=== PATIENT | male | born 1940 | race Caucasian/White ===

== ENCOUNTER 2022-01-29 10:03 | Inpatient (IN) | payer OTHER, MEDICAID ==
[~2022-01-29] VITALS: Ht 152.4 cm; Wt 65.3 kg
[2022-01-29] MEDS ORDERED: SODIUM CHLORIDE 0.9% 1,000 ML IV ONE (10:30)
[2022-01-29 10:51] LABS: BASOPHILS % 0.1 % (0.0-2.0); HEMATOCRIT. 42.7 % (42.0-52.0); HEMOGLOBIN. 14.7 g/dL (14.0-18.0); LYMPHOCYTES % 7.2 % (20.0-50.0); MEAN CORPUSCULAR VOLUME 89.7 fL (80.0-94.0); MEAN PLATELET VOLUME 9.6 fl (7.4-10.4); MONOCYTES % 13.7 % (2.0-8.0); PLATELET 187 x1000/uL (130-400); RED BLOOD CELL COUNT 4.76 mill/uL (4.7-6.1)
[2022-01-29 11:07] LABS: PHOSPHORUS 3.3 mg/dL (2.5-4.9)
[2022-01-29] MEDS ORDERED: VANCOMYCIN 1G PREMIX 200 ML IV NR (11:30)
[2022-01-29] MEDS ORDERED: PIPERACILLIN/TAZ 3.375G PREMIX 50 ML IV NR (11:30)
[2022-01-29] MEDS ORDERED: SODIUM CHLORIDE 0.9% 1000ML BAG (SEPSIS BOLUS) IV ONE (11:30)
[2022-01-29] MEDS ORDERED: SODIUM CHLORIDE 0.9% 2,190 ML IV SCH (11:45)
[2022-01-29] MEDS ORDERED: HYDRALAZINE 20MG/ML VIAL IV ONE (12:00)
[2022-01-29] MEDS ORDERED: DEXAMETHASONE 10 MG/ML VIAL IV ONE (12:15)
[2022-01-29 12:21] LABS: CHLORIDE 104 mEq/L (98-107)
[2022-01-29 14:00] VITALS: BP 150/60
[2022-01-29 14:14] LABS: CHLORIDE 107 mEq/L (98-107)
[2022-01-29 14:30] VITALS: BP 150/60
[2022-01-29] MEDS ORDERED: PIPERACILLIN/TAZOBACTAM 3.375GM/50ML PREMIX IV SCH (15:30)
[2022-01-29 16:28] LABS: CLARITY URINE CLEAR (CLEAR); COLOR URINE YELLOW (YELLOW); KETONES URINE 1+ (NEGATIVE); LEUKOCYTE ESTERASE URINE NEGATIVE (NEGATIVE); NITRITE URINE NEGATIVE (NEGATIVE); OCCULT BLOOD URINE 3+ (NEGATIVE); PROTEIN URINE 3+ (NEGATIVE); SPECIFIC GRAVITY URINE 1.031 (1.005-1.030); UROBILINOGEN URINE 0.2 E.U./dL (0.2-1.0)
[2022-01-29 16:30] VITALS: BP 150/70
[2022-01-29] MEDS: PANTOPRAZOLE SODIUM 40 MG/VIAL IV SCH (16:56)
[2022-01-29] MEDS: ENOXAPARIN 40MG/0.4ML SYR SUBCUT SCH (16:57)
[2022-01-29 17:53] LABS: BG CARBOXYHEMOGLOBIN 0.4 % (0.5-1.5); BG DEOXYHEMOGLOBIN 4.7 % (0.0-5.0); BG FRACTION INSPIRED OXYGEN 21; BG HCO3 ACT 19.7 mmol/L (22.0-26.0); BG METHEMOGLOBIN 0.2 % (0.0-1.5); BG OXYGEN SATURATION 95.3 % (92.0-98.5); BG OXYHEMOGLOBIN 94.7 % (94.0-97.0); BG PCO2 32.6 mmHg (35.0-45.0); BG PO2 77.1 mmHg (75.0-100.0); BG SAMPLE SITE RIGHT RADIAL; BG TOTAL HEMOGLOBIN 14.5 g/dL (12.0-18.0); BG VENT MODE ROOM AIR
[2022-01-29 20:00] VITALS: BP 198/69
[2022-01-29] MEDS ORDERED: DEXTROSE 50% WATER 50ML SYRINGE IV PRN (20:30)
[2022-01-29] MEDS: BLOOD SUGAR DIAGNOSTIC STRIP TEST SCH (21:00)
[2022-01-29] MEDS: CLONIDINE 0.1MG TABLET PO PRN (22:37)
[2022-01-29] MEDS: INSULIN LISPRO 100 UNITS/ML SUBCUT SCH (22:37)
[2022-01-30] VITALS: BP 136/79
[2022-01-30 00:10] LABS: CREATINE KINASE MB FRACTION 16.4 ng/mL (0.5-3.6)
[2022-01-30] MEDS ORDERED: INSULIN LISPRO 100 UNITS/ML SUBCUT SCH (00:15)
[2022-01-30] MEDS: PIPERACILLIN/TAZOBACTAM 3.375G in DEXT 5% WATER 50ML IV SCH ×4 (00:37→21:54)
[2022-01-30 04:00] VITALS: BP 145/75
[2022-01-30 06:50] LABS: BASOPHILS % 0.1 % (0.0-2.0); HEMATOCRIT. 40.1 % (42.0-52.0); HEMOGLOBIN. 13.4 g/dL (14.0-18.0); LYMPHOCYTES % 7.4 % (20.0-50.0); MEAN CORPUSCULAR HEMOGLOBIN 30.8 pg (28.0-32.0); MEAN CORPUSCULAR VOLUME 92.3 fL (80.0-94.0); MEAN PLATELET VOLUME 9.3 fl (7.4-10.4); MONOCYTES % 6.7 % (2.0-8.0); NEUTROPHILS % 85.8 % (40.0-76.0); PLATELET 188 x1000/uL (130-400); RED BLOOD CELL COUNT 4.35 mill/uL (4.7-6.1); RED CELL DISTRIBUTION WIDTH 12.9 % (11.6-14.6)
[2022-01-30] MEDS: BLOOD SUGAR DIAGNOSTIC STRIP TEST SCH ×4 (07:01→21:22)
[2022-01-30 07:06] LABS: CHLORIDE 105 mEq/L (98-107)
[2022-01-30 07:26] LABS: CREATINE KINASE 2414 IU/L (39-308)
[2022-01-30] MEDS: PANTOPRAZOLE SODIUM 40 MG/VIAL IV SCH (09:45)
[2022-01-30] MEDS: ASPIRIN 81MG TABLET PO SCH (09:46)
[2022-01-30] MEDS: INSULIN GLARGINE 100 UNITS/ML SUBCUT SCH (09:47)
[2022-01-30] MEDS: INSULIN LISPRO 100 UNITS/ML SUBCUT SCH ×4 (09:48→21:55)
[2022-01-30 16:30] VITALS: BP 158/68
[2022-01-30] MEDS: ENOXAPARIN 40MG/0.4ML SYR SUBCUT SCH (17:04)
[2022-01-30 20:00] VITALS: BP 178/79
[2022-01-30] MEDS: CLONIDINE 0.1MG TABLET PO PRN (21:55)
[2022-01-31] VITALS: BP 139/68
[2022-01-31 04:00] VITALS: BP 176/64
[2022-01-31] MEDS: CLONIDINE 0.1MG TABLET PO PRN ×2 (05:05→18:20)
[2022-01-31] MEDS: PIPERACILLIN/TAZOBACTAM 3.375G in DEXT 5% WATER 50ML IV SCH ×3 (05:05→21:33)
[2022-01-31] MEDS: BLOOD SUGAR DIAGNOSTIC STRIP TEST SCH ×4 (05:57→21:00)
[2022-01-31] MEDS: INSULIN LISPRO 100 UNITS/ML SUBCUT SCH ×4 (06:13→21:44)
[2022-01-31 08:00] VITALS: BP 143/58
[2022-01-31] MEDS ORDERED: DEXAMETHASONE 10 MG/ML VIAL IV ONE (09:00)
[2022-01-31] MEDS: PANTOPRAZOLE SODIUM 40 MG/VIAL IV SCH (09:19)
[2022-01-31] MEDS: ASPIRIN 81MG TABLET PO SCH (09:19)
[2022-01-31] MEDS: INSULIN GLARGINE 100 UNITS/ML SUBCUT SCH (09:20)
[2022-01-31 12:00] VITALS: BP 159/67
[2022-01-31 16:00] VITALS: BP 179/65
[2022-01-31] MEDS: ENOXAPARIN 40MG/0.4ML SYR SUBCUT SCH (16:01)
[2022-01-31 20:00] VITALS: BP 145/59
[2022-02-01] VITALS: BP 140/62
[2022-02-01 04:00] VITALS: BP 174/67
[2022-02-01] MEDS: BLOOD SUGAR DIAGNOSTIC STRIP TEST SCH ×4 (05:47→21:00)
[2022-02-01] MEDS: INSULIN LISPRO 100 UNITS/ML SUBCUT SCH ×4 (05:47→21:00)
[2022-02-01] MEDS: PIPERACILLIN/TAZOBACTAM 3.375G in DEXT 5% WATER 50ML IV SCH ×3 (06:07→21:41)
[2022-02-01] MEDS: CLONIDINE 0.1MG TABLET PO PRN ×2 (06:07→17:05)
[2022-02-01 08:00] VITALS: BP 157/57
[2022-02-01] MEDS: INSULIN GLARGINE 100 UNITS/ML SUBCUT SCH (09:20)
[2022-02-01] MEDS: FAMOTIDINE 20MG TABLET PO SCH (09:20)
[2022-02-01] MEDS: ASPIRIN 81MG TABLET PO SCH (09:20)
[2022-02-01 12:00] VITALS: BP 148/60
[2022-02-01 16:00] VITALS: BP 188/75
[2022-02-01] MEDS: ENOXAPARIN 40MG/0.4ML SYR SUBCUT SCH (17:05)
[2022-02-01 17:56] LABS: EOSINOPHILS % 0.3 % (0.0-5.0); HEMATOCRIT. 40.9 % (42.0-52.0); HEMOGLOBIN. 13.6 g/dL (14.0-18.0); LYMPHOCYTES % 12.4 % (20.0-50.0); MEAN CORPUSCULAR HEMOGLOBIN 30.6 pg (28.0-32.0); MEAN PLATELET VOLUME 9.6 fl (7.4-10.4); MONOCYTES % 10.2 % (2.0-8.0); NEUTROPHILS % 77.1 % (40.0-76.0); PLATELET 159 x1000/uL (130-400); RED BLOOD CELL COUNT 4.44 mill/uL (4.7-6.1); RED CELL DISTRIBUTION WIDTH 12.6 % (11.6-14.6)
[2022-02-01 18:13] LABS: CREATINE KINASE 574 IU/L (39-308)
[2022-02-01 20:00] VITALS: BP 168/85
[2022-02-02] VITALS (7 sets, daily range): BP systolic 146–171; BP diastolic 57–90
[2022-02-02] MEDS: CLONIDINE 0.1MG TABLET PO PRN ×2 (01:42→09:35)
[2022-02-02] MEDS: PIPERACILLIN/TAZOBACTAM 3.375G in DEXT 5% WATER 50ML IV SCH ×3 (05:47→21:30)
[2022-02-02] MEDS: BLOOD SUGAR DIAGNOSTIC STRIP TEST SCH ×4 (06:37→21:25)
[2022-02-02] MEDS: INSULIN LISPRO 100 UNITS/ML SUBCUT SCH ×4 (06:37→21:00)
[2022-02-02] MEDS: FAMOTIDINE 20MG TABLET PO SCH (09:25)
[2022-02-02] MEDS: ASPIRIN 81MG TABLET PO SCH (09:25)
[2022-02-02] MEDS: INSULIN GLARGINE 100 UNITS/ML SUBCUT SCH ×2 (09:26→21:37)
[2022-02-02] MEDS: AMLODIPINE 10MG TABLET PO SCH (16:38)
[2022-02-02] MEDS: ENOXAPARIN 40MG/0.4ML SYR SUBCUT SCH (16:39)
[2022-02-03] VITALS: BP 159/57
[2022-02-03 04:55] VITALS: BP 180/73
[2022-02-03] MEDS: CLONIDINE 0.1MG TABLET PO PRN (06:12)
[2022-02-03] MEDS: PIPERACILLIN/TAZOBACTAM 3.375G in DEXT 5% WATER 50ML IV SCH ×2 (06:13→13:05)
[2022-02-03] MEDS: BLOOD SUGAR DIAGNOSTIC STRIP TEST SCH ×4 (06:13→21:12)
[2022-02-03] MEDS: INSULIN LISPRO 100 UNITS/ML SUBCUT SCH ×4 (06:13→21:00)
[2022-02-03 08:00] VITALS: BP 172/64
[2022-02-03] MEDS: FAMOTIDINE 20MG TABLET PO SCH (09:46)
[2022-02-03] MEDS: ASPIRIN 81MG TABLET PO SCH (09:46)
[2022-02-03] MEDS: AMLODIPINE 10MG TABLET PO SCH (09:46)
[2022-02-03] MEDS: INSULIN GLARGINE 100 UNITS/ML SUBCUT SCH ×2 (09:46→21:18)
[2022-02-03] MEDS: GUAIFENESIN-DM 200MG-20MG/10ML UDC PO PRN (09:57)
[2022-02-03 12:00] VITALS: BP 157/71
[2022-02-03] MEDS: HYDRALAZINE HCL 50MG TABLET PO SCH ×2 (13:05→21:14)
[2022-02-03 16:00] VITALS: BP 139/64
[2022-02-03] MEDS: ENOXAPARIN 40MG/0.4ML SYR SUBCUT SCH (17:38)
[2022-02-03 20:00] VITALS: BP 150/75
[2022-02-03 21:11] LABS: HEMATOCRIT. 37.7 % (42.0-52.0); HEMOGLOBIN. 12.7 g/dL (14.0-18.0); MEAN CORPUSCULAR HEMOGLOBIN 30.4 pg (28.0-32.0); MEAN CORPUSCULAR VOLUME 90.3 fL (80.0-94.0); MEAN PLATELET VOLUME 9.6 fl (7.4-10.4); PLATELET 245 x1000/uL (130-400); RED BLOOD CELL COUNT 4.17 mill/uL (4.7-6.1); RED CELL DISTRIBUTION WIDTH 12.8 % (11.6-14.6)
[2022-02-03 21:25] LABS: CHLORIDE 105 mEq/L (98-107)
[2022-02-03 21:34] LABS: CREATINE KINASE 392 IU/L (39-308); CREATINE KINASE MB FRACTION 3.3 ng/mL (0.5-3.6)
[2022-02-03 22:11] LABS: PLATELET ESTIMATE NORMAL
[2022-02-04] VITALS: BP 162/71
[2022-02-04] MEDS: CLONIDINE 0.1MG TABLET PO PRN (01:18)
[2022-02-04 04:00] VITALS: BP 158/67
[2022-02-04] MEDS: HYDRALAZINE HCL 50MG TABLET PO SCH ×3 (05:11→21:15)
[2022-02-04] MEDS: BLOOD SUGAR DIAGNOSTIC STRIP TEST SCH ×4 (06:06→21:16)
[2022-02-04] MEDS: INSULIN LISPRO 100 UNITS/ML SUBCUT SCH ×4 (06:24→21:16)
[2022-02-04 07:14] LABS: HEMATOCRIT. 38.2 % (42.0-52.0); HEMOGLOBIN. 13.2 g/dL (14.0-18.0); MEAN CORPUSCULAR HEMOGLOBIN 30.9 pg (28.0-32.0); MEAN CORPUSCULAR VOLUME 89.8 fL (80.0-94.0); MEAN PLATELET VOLUME 9.2 fl (7.4-10.4); PLATELET 282 x1000/uL (130-400); RED BLOOD CELL COUNT 4.25 mill/uL (4.7-6.1); RED CELL DISTRIBUTION WIDTH 12.8 % (11.6-14.6)
[2022-02-04 07:17] LABS: CHLORIDE 105 mEq/L (98-107)
[2022-02-04 08:00] VITALS: BP 172/67
[2022-02-04] MEDS: FAMOTIDINE 20MG TABLET PO SCH (08:21)
[2022-02-04] MEDS: AMLODIPINE 10MG TABLET PO SCH (08:21)
[2022-02-04] MEDS: ASPIRIN 81MG TABLET PO SCH (08:21)
[2022-02-04] MEDS: INSULIN GLARGINE 100 UNITS/ML SUBCUT SCH ×2 (09:35→21:16)
[2022-02-04 12:00] VITALS: BP 137/60
[2022-02-04] MEDS ORDERED: POTASSIUM CHLORIDE 20MEQ TABLET SR PO NR (12:45)
[2022-02-04 14:30] LABS: PLATELET ESTIMATE NORMAL
[2022-02-04 16:00] VITALS: BP 158/67
[2022-02-04] MEDS: ENOXAPARIN 40MG/0.4ML SYR SUBCUT SCH (17:18)
[2022-02-04 20:00] VITALS: BP 139/53
[2022-02-05] VITALS: BP 155/63
[2022-02-05 04:00] VITALS: BP 166/59
[2022-02-05] MEDS: CLONIDINE 0.1MG TABLET PO PRN ×2 (04:46→17:45)
[2022-02-05] MEDS: BLOOD SUGAR DIAGNOSTIC STRIP TEST SCH ×4 (05:43→21:00)
[2022-02-05] MEDS: HYDRALAZINE HCL 50MG TABLET PO SCH ×3 (05:43→21:27)
[2022-02-05] MEDS: INSULIN LISPRO 100 UNITS/ML SUBCUT SCH ×4 (06:16→21:26)
[2022-02-05 08:00] VITALS: BP 159/61
[2022-02-05] MEDS: AMLODIPINE 10MG TABLET PO SCH (08:35)
[2022-02-05] MEDS: ASPIRIN 81MG TABLET PO SCH (08:35)
[2022-02-05] MEDS: FAMOTIDINE 20MG TABLET PO SCH (08:35)
[2022-02-05] MEDS: INSULIN GLARGINE 100 UNITS/ML SUBCUT SCH ×2 (11:51→21:27)
[2022-02-05 12:00] VITALS: BP 145/63
[2022-02-05 16:00] VITALS: BP 160/68
[2022-02-05] MEDS: ENOXAPARIN 40MG/0.4ML SYR SUBCUT SCH (17:44)
[2022-02-05] MEDS: GUAIFENESIN-DM 200MG-20MG/10ML UDC PO PRN (17:46)
[2022-02-05 20:00] VITALS: BP 158/66
[2022-02-06] VITALS: BP 150/73
[2022-02-06 04:00] VITALS: BP 166/66
[2022-02-06] MEDS: HYDRALAZINE HCL 50MG TABLET PO SCH ×3 (05:55→22:46)
[2022-02-06] MEDS: INSULIN LISPRO 100 UNITS/ML SUBCUT SCH ×4 (06:01→21:00)
[2022-02-06] MEDS: BLOOD SUGAR DIAGNOSTIC STRIP TEST SCH ×4 (06:01→21:00)
[2022-02-06] MEDS: ASPIRIN 81MG TABLET PO SCH (09:17)
[2022-02-06] MEDS: AMLODIPINE 10MG TABLET PO SCH (09:17)
[2022-02-06] MEDS: FAMOTIDINE 20MG TABLET PO SCH (09:17)
[2022-02-06] MEDS: INSULIN GLARGINE 100 UNITS/ML SUBCUT SCH ×2 (09:18→22:00)
[2022-02-06 12:00] VITALS: BP_SYST 151; BP_SYST 160; BP_DIAS 60; BP_DIAS 70
[2022-02-06 16:00] VITALS: BP 151/61
[2022-02-06] MEDS: ENOXAPARIN 40MG/0.4ML SYR SUBCUT SCH (18:05)
[2022-02-06 20:00] VITALS: BP 152/86
[2022-02-07] VITALS: BP 150/68
[2022-02-07 04:40] VITALS: BP 155/84
[2022-02-07] MEDS: HYDRALAZINE HCL 50MG TABLET PO SCH ×2 (05:53→13:59)
[2022-02-07] MEDS: GUAIFENESIN-DM 200MG-20MG/10ML UDC PO PRN (05:53)
[2022-02-07] MEDS: BLOOD SUGAR DIAGNOSTIC STRIP TEST SCH ×4 (05:53→21:00)
[2022-02-07] MEDS: INSULIN LISPRO 100 UNITS/ML SUBCUT SCH ×3 (05:54→18:02)
[2022-02-07 08:00] VITALS: BP 160/62
[2022-02-07] MEDS: ASPIRIN 81MG TABLET PO SCH (09:44)
[2022-02-07] MEDS: FAMOTIDINE 20MG TABLET PO SCH (09:44)
[2022-02-07] MEDS: AMLODIPINE 10MG TABLET PO SCH (09:44)
[2022-02-07] MEDS: INSULIN GLARGINE 100 UNITS/ML SUBCUT SCH ×2 (09:45→22:00)
[2022-02-07 12:00] VITALS: BP 159/65
[2022-02-07 16:00] VITALS: BP 160/68
[2022-02-07] MEDS: ENOXAPARIN 40MG/0.4ML SYR SUBCUT SCH (16:58)
[2022-02-07 20:00] VITALS: BP 136/61
[2022-02-08] VITALS: BP 155/56
[2022-02-08] MEDS: INSULIN LISPRO 100 UNITS/ML SUBCUT SCH ×5 (00:09→21:51)
[2022-02-08] MEDS: HYDRALAZINE HCL 50MG TABLET PO SCH ×4 (00:10→21:42)
[2022-02-08 04:00] VITALS: BP 151/62
[2022-02-08] MEDS: BLOOD SUGAR DIAGNOSTIC STRIP TEST SCH ×4 (06:28→21:00)
[2022-02-08 08:00] VITALS: BP 150/63
[2022-02-08] MEDS: ASPIRIN 81MG TABLET PO SCH (08:29)
[2022-02-08] MEDS: AMLODIPINE 10MG TABLET PO SCH (08:29)
[2022-02-08] MEDS: FAMOTIDINE 20MG TABLET PO SCH (08:29)
[2022-02-08] MEDS: INSULIN GLARGINE 100 UNITS/ML SUBCUT SCH ×2 (10:14→21:53)
[2022-02-08 12:00] VITALS: BP 168/68
[2022-02-08 16:00] VITALS: BP 125/62
[2022-02-08] MEDS: ENOXAPARIN 40MG/0.4ML SYR SUBCUT SCH (16:18)
[2022-02-08 20:00] VITALS: BP 124/80
[2022-02-09 00:10] VITALS: BP 131/68
[2022-02-09 04:00] VITALS: BP 160/72
[2022-02-09] MEDS: INSULIN LISPRO 100 UNITS/ML SUBCUT SCH ×4 (05:50→22:06)
[2022-02-09] MEDS: BLOOD SUGAR DIAGNOSTIC STRIP TEST SCH ×4 (05:50→21:00)
[2022-02-09] MEDS: HYDRALAZINE HCL 50MG TABLET PO SCH ×3 (06:00→22:04)
[2022-02-09 08:00] VITALS: BP 146/62
[2022-02-09] MEDS: FAMOTIDINE 20MG TABLET PO SCH (08:56)
[2022-02-09] MEDS: AMLODIPINE 10MG TABLET PO SCH (08:56)
[2022-02-09] MEDS: ASPIRIN 81MG TABLET PO SCH (08:57)
[2022-02-09] MEDS: INSULIN GLARGINE 100 UNITS/ML SUBCUT SCH ×2 (10:00→22:04)
[2022-02-09 12:00] VITALS: BP 141/63
[2022-02-09 16:00] VITALS: BP 145/61
[2022-02-09] MEDS: ENOXAPARIN 40MG/0.4ML SYR SUBCUT SCH (16:25)
[2022-02-09 20:00] VITALS: BP 156/67
[2022-02-10] VITALS (7 sets, daily range): BP systolic 140–176; BP diastolic 61–100
[2022-02-10] MEDS: HYDRALAZINE HCL 50MG TABLET PO SCH ×3 (06:01→21:12)
[2022-02-10] MEDS: BLOOD SUGAR DIAGNOSTIC STRIP TEST SCH ×4 (06:40→21:13)
[2022-02-10] MEDS: INSULIN LISPRO 100 UNITS/ML SUBCUT SCH ×4 (07:07→21:00)
[2022-02-10] MEDS: AMLODIPINE 10MG TABLET PO SCH (09:00)
[2022-02-10] MEDS: ASPIRIN 81MG TABLET PO SCH (09:00)
[2022-02-10] MEDS: FAMOTIDINE 20MG TABLET PO SCH (09:00)
[2022-02-10] MEDS: ENOXAPARIN 40MG/0.4ML SYR SUBCUT SCH (18:37)
[2022-02-10] MEDS: INSULIN GLARGINE 100 UNITS/ML SUBCUT SCH (21:23)
[2022-02-11] VITALS: BP 152/68
[2022-02-11 04:00] VITALS: BP 158/76
[2022-02-11] MEDS: HYDRALAZINE HCL 50MG TABLET PO SCH ×3 (05:23→22:14)
[2022-02-11] MEDS: INSULIN LISPRO 100 UNITS/ML SUBCUT SCH ×4 (05:26→22:14)
[2022-02-11] MEDS: BLOOD SUGAR DIAGNOSTIC STRIP TEST SCH ×4 (05:26→21:00)
[2022-02-11 07:35] LABS: CHLORIDE 105 mEq/L (98-107)
[2022-02-11 07:36] LABS: BASOPHILS % 0.7 % (0.0-2.0); EOSINOPHILS % 2.3 % (0.0-5.0); HEMATOCRIT. 37.4 % (42.0-52.0); HEMOGLOBIN. 12.9 g/dL (14.0-18.0); LYMPHOCYTES % 19.4 % (20.0-50.0); MEAN CORPUSCULAR HEMOGLOBIN 31.1 pg (28.0-32.0); MEAN CORPUSCULAR VOLUME 90.3 fL (80.0-94.0); MEAN PLATELET VOLUME 7.9 fl (7.4-10.4); MONOCYTES % 7.9 % (2.0-8.0); NEUTROPHILS % 69.7 % (40.0-76.0); PLATELET 491 x1000/uL (130-400); RED BLOOD CELL COUNT 4.15 mill/uL (4.7-6.1); RED CELL DISTRIBUTION WIDTH 12.5 % (11.6-14.6)
[2022-02-11 08:00] VITALS: BP 137/75
[2022-02-11] MEDS: ASPIRIN 81MG TABLET PO SCH (09:03)
[2022-02-11] MEDS: AMLODIPINE 10MG TABLET PO SCH (09:04)
[2022-02-11] MEDS: FAMOTIDINE 20MG TABLET PO SCH (09:04)
[2022-02-11] MEDS: INSULIN GLARGINE 100 UNITS/ML SUBCUT SCH ×2 (09:07→22:15)
[2022-02-11 12:00] VITALS: BP 130/69
[2022-02-11 16:00] VITALS: BP 146/69
[2022-02-11] MEDS: ENOXAPARIN 40MG/0.4ML SYR SUBCUT SCH (17:18)
[2022-02-11 20:00] VITALS: BP 156/76
[2022-02-12] VITALS: BP 139/66
[2022-02-12 04:00] VITALS: BP_SYST 173; BP_SYST 95; BP_DIAS 66; BP_DIAS 86
[2022-02-12] MEDS: HYDRALAZINE HCL 50MG TABLET PO SCH ×3 (06:52→21:44)
[2022-02-12] MEDS: BLOOD SUGAR DIAGNOSTIC STRIP TEST SCH ×4 (06:53→21:43)
[2022-02-12] MEDS: INSULIN LISPRO 100 UNITS/ML SUBCUT SCH ×4 (07:50→21:43)
[2022-02-12 08:00] VITALS: BP 138/70
[2022-02-12] MEDS: ASPIRIN 81MG TABLET PO SCH (09:17)
[2022-02-12] MEDS: AMLODIPINE 10MG TABLET PO SCH (09:18)
[2022-02-12] MEDS: FAMOTIDINE 20MG TABLET PO SCH (09:18)
[2022-02-12] MEDS: INSULIN GLARGINE 100 UNITS/ML SUBCUT SCH ×2 (09:54→21:44)
[2022-02-12 12:00] VITALS: BP 132/68
[2022-02-12 16:00] VITALS: BP 132/74
[2022-02-12] MEDS: ENOXAPARIN 40MG/0.4ML SYR SUBCUT SCH (18:55)
[2022-02-12 20:00] VITALS: BP 131/61
[2022-02-13] VITALS: BP 136/70
[2022-02-13 04:00] VITALS: BP 99/74
[2022-02-13] MEDS: HYDRALAZINE HCL 50MG TABLET PO SCH ×3 (06:00→22:00)
[2022-02-13] MEDS: INSULIN LISPRO 100 UNITS/ML SUBCUT SCH ×4 (07:50→21:00)
[2022-02-13 08:00] VITALS: BP 129/61
[2022-02-13] MEDS: BLOOD SUGAR DIAGNOSTIC STRIP TEST SCH ×4 (08:15→21:00)
[2022-02-13] MEDS: ASPIRIN 81MG TABLET PO SCH (09:08)
[2022-02-13] MEDS: AMLODIPINE 10MG TABLET PO SCH (09:09)
[2022-02-13] MEDS: FAMOTIDINE 20MG TABLET PO SCH (09:09)
[2022-02-13] MEDS: INSULIN GLARGINE 100 UNITS/ML SUBCUT SCH ×2 (09:34→22:00)
[2022-02-13 12:00] VITALS: BP 148/64
[2022-02-13 16:00] VITALS: BP 118/70
[2022-02-13] MEDS: ENOXAPARIN 40MG/0.4ML SYR SUBCUT SCH (16:00)
[2022-02-13 20:00] VITALS: BP 131/60
[2022-02-14] VITALS: BP 138/72
[2022-02-14 04:00] VITALS: BP 133/64
[2022-02-14] MEDS: BLOOD SUGAR DIAGNOSTIC STRIP TEST SCH ×4 (07:13→20:06)
[2022-02-14] MEDS: HYDRALAZINE HCL 50MG TABLET PO SCH ×3 (07:13→22:08)
[2022-02-14] MEDS: INSULIN LISPRO 100 UNITS/ML SUBCUT SCH ×4 (07:14→20:10)
[2022-02-14 08:00] VITALS: BP 127/66
[2022-02-14] MEDS: ASPIRIN 81MG TABLET PO SCH (08:50)
[2022-02-14] MEDS: AMLODIPINE 10MG TABLET PO SCH (08:50)
[2022-02-14] MEDS: FAMOTIDINE 20MG TABLET PO SCH (08:51)
[2022-02-14] MEDS: INSULIN GLARGINE 100 UNITS/ML SUBCUT SCH ×2 (09:09→22:00)
[2022-02-14 12:00] VITALS: BP 117/67
[2022-02-14 16:00] VITALS: BP 147/97
[2022-02-14] MEDS: ENOXAPARIN 40MG/0.4ML SYR SUBCUT SCH (18:34)
[2022-02-14 20:00] VITALS: BP 121/70
[2022-02-14] MEDS ORDERED: MORPHINE SULFATE 2 MG/ML CPJ (NOT FOR IM USE) IV PRN (20:00)
[2022-02-14] MEDS ORDERED: NALOXONE HCL 0.4MG/ML VIAL IV PRN (20:00)
[2022-02-15] VITALS: BP 152/74
[2022-02-15 04:00] VITALS: BP 155/68
[2022-02-15] MEDS: HYDRALAZINE HCL 50MG TABLET PO SCH ×3 (05:54→22:30)
[2022-02-15] MEDS: BLOOD SUGAR DIAGNOSTIC STRIP TEST SCH ×4 (07:20→21:00)
[2022-02-15] MEDS: INSULIN LISPRO 100 UNITS/ML SUBCUT SCH ×4 (07:50→21:00)
[2022-02-15 08:00] VITALS: BP 136/67
[2022-02-15] MEDS: ASPIRIN 81MG TABLET PO SCH (09:22)
[2022-02-15] MEDS: FAMOTIDINE 20MG TABLET PO SCH (09:24)
[2022-02-15] MEDS: AMLODIPINE 10MG TABLET PO SCH (09:24)
[2022-02-15] MEDS: INSULIN GLARGINE 100 UNITS/ML SUBCUT SCH ×2 (09:44→22:38)
[2022-02-15 12:00] VITALS: BP 123/72
[2022-02-15 16:00] VITALS: BP 130/67
[2022-02-15] MEDS: ENOXAPARIN 40MG/0.4ML SYR SUBCUT SCH (18:22)
[2022-02-16 04:00] VITALS: BP 133/72
[2022-02-16] MEDS: HYDRALAZINE HCL 50MG TABLET PO SCH ×2 (06:42→13:14)
[2022-02-16] MEDS: BLOOD SUGAR DIAGNOSTIC STRIP TEST SCH ×3 (07:20→22:00)
[2022-02-16] MEDS: INSULIN LISPRO 100 UNITS/ML SUBCUT SCH ×3 (07:50→21:00)
[2022-02-16 08:00] VITALS: BP 140/73
[2022-02-16] MEDS: ASPIRIN 81MG TABLET PO SCH (10:42)
[2022-02-16] MEDS: FAMOTIDINE 20MG TABLET PO SCH (10:42)
[2022-02-16] MEDS: AMLODIPINE 10MG TABLET PO SCH (10:42)
[2022-02-16] MEDS: INSULIN GLARGINE 100 UNITS/ML SUBCUT SCH (11:43)
[2022-02-16 12:00] VITALS: BP 133/71
[2022-02-16] MEDS: ENOXAPARIN 40MG/0.4ML SYR SUBCUT SCH (13:13)
[2022-02-16 16:00] VITALS: BP 134/60
[2022-02-16 20:00] VITALS: BP 145/56
[2022-02-17] VITALS: BP 153/78
[2022-02-17] MEDS: HYDRALAZINE HCL 50MG TABLET PO SCH ×4 (00:11→21:30)
[2022-02-17] MEDS: INSULIN GLARGINE 100 UNITS/ML SUBCUT SCH ×3 (00:16→21:36)
[2022-02-17] MEDS: INSULIN LISPRO 100 UNITS/ML SUBCUT SCH ×5 (00:29→21:34)
[2022-02-17 04:00] VITALS: BP 114/69
[2022-02-17] MEDS: BLOOD SUGAR DIAGNOSTIC STRIP TEST SCH ×4 (07:47→21:31)
[2022-02-17 08:00] VITALS: BP 143/68
[2022-02-17] MEDS: ASPIRIN 81MG TABLET PO SCH (09:14)
[2022-02-17] MEDS: AMLODIPINE 10MG TABLET PO SCH (09:14)
[2022-02-17] MEDS: FAMOTIDINE 20MG TABLET PO SCH (09:14)
[2022-02-17 12:00] VITALS: BP 128/75
[2022-02-17] MEDS: ENOXAPARIN 40MG/0.4ML SYR SUBCUT SCH (13:52)
[2022-02-17 16:00] VITALS: BP 133/70
[2022-02-17 20:00] VITALS: BP 153/73
[2022-02-18] VITALS: BP 146/72
[2022-02-18 04:00] VITALS: BP 148/73
[2022-02-18] MEDS: HYDRALAZINE HCL 50MG TABLET PO SCH ×3 (05:51→21:04)
[2022-02-18] MEDS: BLOOD SUGAR DIAGNOSTIC STRIP TEST SCH ×4 (06:21→21:08)
[2022-02-18 06:37] LABS: CHLORIDE 103 mEq/L (98-107)
[2022-02-18 06:38] LABS: BASOPHILS % 0.7 % (0.0-2.0); EOSINOPHILS % 3.2 % (0.0-5.0); HEMATOCRIT. 35.7 % (42.0-52.0); HEMOGLOBIN. 12.3 g/dL (14.0-18.0); LYMPHOCYTES % 18.8 % (20.0-50.0); MEAN CORPUSCULAR VOLUME 90.2 fL (80.0-94.0); MEAN PLATELET VOLUME 8.2 fl (7.4-10.4); NEUTROPHILS % 69.3 % (40.0-76.0); PLATELET 368 x1000/uL (130-400); RED BLOOD CELL COUNT 3.96 mill/uL (4.7-6.1); RED CELL DISTRIBUTION WIDTH 12.7 % (11.6-14.6)
[2022-02-18] MEDS: INSULIN LISPRO 100 UNITS/ML SUBCUT SCH ×4 (07:35→21:08)
[2022-02-18 08:00] VITALS: BP 142/65
[2022-02-18] MEDS: ASPIRIN 81MG TABLET PO SCH (08:41)
[2022-02-18] MEDS: AMLODIPINE 10MG TABLET PO SCH (08:43)
[2022-02-18] MEDS: FAMOTIDINE 20MG TABLET PO SCH (08:43)
[2022-02-18] MEDS: INSULIN GLARGINE 100 UNITS/ML SUBCUT SCH ×2 (10:00→21:10)
[2022-02-18 12:00] VITALS: BP 144/68
[2022-02-18 16:00] VITALS: BP 127/73
[2022-02-18] MEDS: ENOXAPARIN 40MG/0.4ML SYR SUBCUT SCH (17:13)
[2022-02-18 20:00] VITALS: BP 130/70
[2022-02-19] VITALS: BP 130/64
[2022-02-19 04:00] VITALS: BP 144/78
[2022-02-19] MEDS: HYDRALAZINE HCL 50MG TABLET PO SCH ×3 (05:13→21:54)
[2022-02-19] MEDS: INSULIN LISPRO 100 UNITS/ML SUBCUT SCH ×4 (07:24→20:42)
[2022-02-19] MEDS: BLOOD SUGAR DIAGNOSTIC STRIP TEST SCH ×4 (07:24→20:43)
[2022-02-19 08:00] VITALS: BP 135/63
[2022-02-19] MEDS: FAMOTIDINE 20MG TABLET PO SCH (09:04)
[2022-02-19] MEDS: ASPIRIN 81MG TABLET PO SCH (09:04)
[2022-02-19] MEDS: AMLODIPINE 10MG TABLET PO SCH (09:04)
[2022-02-19] MEDS: INSULIN GLARGINE 100 UNITS/ML SUBCUT SCH ×2 (10:19→22:03)
[2022-02-19 12:00] VITALS: BP 121/74
[2022-02-19 16:00] VITALS: BP 120/74
[2022-02-19] MEDS: ENOXAPARIN 40MG/0.4ML SYR SUBCUT SCH (16:20)
[2022-02-19 20:00] VITALS: BP 137/65
[2022-02-20] VITALS: BP 140/60
[2022-02-20 04:00] VITALS: BP 131/71
[2022-02-20] MEDS: HYDRALAZINE HCL 50MG TABLET PO SCH ×3 (05:38→21:04)
[2022-02-20] MEDS: BLOOD SUGAR DIAGNOSTIC STRIP TEST SCH ×4 (07:20→21:04)
[2022-02-20] MEDS: INSULIN LISPRO 100 UNITS/ML SUBCUT SCH ×4 (07:50→21:05)
[2022-02-20 08:00] VITALS: BP 142/61
[2022-02-20] MEDS: AMLODIPINE 10MG TABLET PO SCH (08:48)
[2022-02-20] MEDS: ASPIRIN 81MG TABLET PO SCH (08:49)
[2022-02-20] MEDS: FAMOTIDINE 20MG TABLET PO SCH (08:49)
[2022-02-20] MEDS: INSULIN GLARGINE 100 UNITS/ML SUBCUT SCH ×2 (10:00→21:06)
[2022-02-20 12:00] VITALS: BP 113/63
[2022-02-20 16:00] VITALS: BP 130/69
[2022-02-20] MEDS: ENOXAPARIN 40MG/0.4ML SYR SUBCUT SCH (18:02)
[2022-02-20 20:00] VITALS: BP 144/68
[2022-02-21] VITALS: BP 165/75
[2022-02-21] MEDS: CLONIDINE 0.1MG TABLET PO PRN (00:42)
[2022-02-21 04:00] VITALS: BP 139/70
[2022-02-21] MEDS: HYDRALAZINE HCL 50MG TABLET PO SCH ×3 (05:56→21:11)
[2022-02-21] MEDS: INSULIN LISPRO 100 UNITS/ML SUBCUT SCH ×4 (06:48→20:33)
[2022-02-21] MEDS: BLOOD SUGAR DIAGNOSTIC STRIP TEST SCH ×4 (06:48→20:33)
[2022-02-21 08:00] VITALS: BP 134/64
[2022-02-21] MEDS: ASPIRIN 81MG TABLET PO SCH (09:45)
[2022-02-21] MEDS: AMLODIPINE 10MG TABLET PO SCH (09:45)
[2022-02-21] MEDS: FAMOTIDINE 20MG TABLET PO SCH (09:45)
[2022-02-21] MEDS: INSULIN GLARGINE 100 UNITS/ML SUBCUT SCH ×2 (10:43→21:14)
[2022-02-21 12:00] VITALS: BP 125/76
[2022-02-21 16:00] VITALS: BP 123/60
[2022-02-21] MEDS: ENOXAPARIN 40MG/0.4ML SYR SUBCUT SCH (16:20)
[2022-02-21 20:00] VITALS: BP 149/73
[2022-02-22] VITALS: BP 134/70
[2022-02-22 04:00] VITALS: BP 139/73
[2022-02-22] MEDS: HYDRALAZINE HCL 50MG TABLET PO SCH ×3 (05:49→21:18)
[2022-02-22] MEDS: BLOOD SUGAR DIAGNOSTIC STRIP TEST SCH ×4 (07:32→21:16)
[2022-02-22] MEDS: INSULIN LISPRO 100 UNITS/ML SUBCUT SCH ×4 (07:32→21:14)
[2022-02-22 08:00] VITALS: BP 135/69
[2022-02-22] MEDS: FAMOTIDINE 20MG TABLET PO SCH (08:46)
[2022-02-22] MEDS: ASPIRIN 81MG TABLET PO SCH (08:46)
[2022-02-22] MEDS: AMLODIPINE 10MG TABLET PO SCH (08:47)
[2022-02-22] MEDS: INSULIN GLARGINE 100 UNITS/ML SUBCUT SCH ×2 (10:19→21:16)
[2022-02-22 12:00] VITALS: BP 129/61
[2022-02-22] MEDS ORDERED: NALOXONE HCL 0.4MG/ML VIAL IV PRN (14:45)
[2022-02-22] MEDS: TRAMADOL 50MG TABLET PO PRN (15:05)
[2022-02-22] MEDS: ENOXAPARIN 40MG/0.4ML SYR SUBCUT SCH (15:05)
[2022-02-22 16:00] VITALS: BP 140/65
[2022-02-22 20:00] VITALS: BP 125/70
[2022-02-23] VITALS: BP 139/61
[2022-02-23 04:00] VITALS: BP 150/65
[2022-02-23] MEDS: HYDRALAZINE HCL 50MG TABLET PO SCH ×3 (05:53→21:00)
[2022-02-23] MEDS: BLOOD SUGAR DIAGNOSTIC STRIP TEST SCH ×4 (07:20→21:02)
[2022-02-23] MEDS: INSULIN LISPRO 100 UNITS/ML SUBCUT SCH ×4 (07:50→21:01)
[2022-02-23 08:00] VITALS: BP 144/60
[2022-02-23] MEDS: ASPIRIN 81MG TABLET PO SCH (09:16)
[2022-02-23] MEDS: FAMOTIDINE 20MG TABLET PO SCH (09:16)
[2022-02-23] MEDS: AMLODIPINE 10MG TABLET PO SCH (09:19)
[2022-02-23] MEDS: INSULIN GLARGINE 100 UNITS/ML SUBCUT SCH ×2 (10:43→21:01)
[2022-02-23 12:00] VITALS: BP 134/65
[2022-02-23 16:31] VITALS: BP 138/65
[2022-02-23] MEDS: ENOXAPARIN 40MG/0.4ML SYR SUBCUT SCH (17:37)
[2022-02-23 20:00] VITALS: BP 137/63
[2022-02-24] VITALS: BP 152/66
[2022-02-24 02:10] VITALS: BP 150/65
[2022-02-24] MEDS: HYDRALAZINE HCL 50MG TABLET PO SCH ×3 (05:38→21:53)
[2022-02-24] MEDS: BLOOD SUGAR DIAGNOSTIC STRIP TEST SCH ×4 (06:16→21:53)
[2022-02-24] MEDS: INSULIN LISPRO 100 UNITS/ML SUBCUT SCH ×4 (07:50→21:53)
[2022-02-24 08:00] VITALS: BP 152/89
[2022-02-24] MEDS: ASPIRIN 81MG TABLET PO SCH (09:17)
[2022-02-24] MEDS: AMLODIPINE 10MG TABLET PO SCH (09:18)
[2022-02-24] MEDS: FAMOTIDINE 20MG TABLET PO SCH (09:18)
[2022-02-24] MEDS: TRAMADOL 50MG TABLET PO PRN (09:20)
[2022-02-24] MEDS: INSULIN GLARGINE 100 UNITS/ML SUBCUT SCH ×2 (09:26→21:54)
[2022-02-24 12:00] VITALS: BP 136/65
[2022-02-24 16:00] VITALS: BP 136/80
[2022-02-24] MEDS: ENOXAPARIN 40MG/0.4ML SYR SUBCUT SCH (16:17)
[2022-02-24 20:00] VITALS: BP 129/66
[2022-02-25] VITALS: BP 125/60
[2022-02-25] MEDS: CLONIDINE 0.1MG TABLET PO PRN (00:45)
[2022-02-25 04:00] VITALS: BP 165/59
[2022-02-25] MEDS: HYDRALAZINE HCL 50MG TABLET PO SCH ×3 (05:32→22:50)
[2022-02-25] MEDS: BLOOD SUGAR DIAGNOSTIC STRIP TEST SCH ×4 (06:58→21:00)
[2022-02-25] MEDS: INSULIN LISPRO 100 UNITS/ML SUBCUT SCH ×4 (07:50→21:00)
[2022-02-25 08:00] VITALS: BP 123/67
[2022-02-25] MEDS: AMLODIPINE 10MG TABLET PO SCH (09:50)
[2022-02-25] MEDS: FAMOTIDINE 20MG TABLET PO SCH (09:51)
[2022-02-25] MEDS: ASPIRIN 81MG TABLET PO SCH (09:51)
[2022-02-25] MEDS: INSULIN GLARGINE 100 UNITS/ML SUBCUT SCH ×2 (09:52→22:00)
[2022-02-25 12:00] VITALS: BP 131/71
[2022-02-25 16:00] VITALS: BP 114/63
[2022-02-25] MEDS: ENOXAPARIN 40MG/0.4ML SYR SUBCUT SCH (17:11)
[2022-02-25 20:00] VITALS: BP 127/65
[2022-02-26] VITALS: BP 126/60
[2022-02-26 04:00] VITALS: BP 126/58
[2022-02-26] MEDS: HYDRALAZINE HCL 50MG TABLET PO SCH ×3 (05:36→21:14)
[2022-02-26] MEDS: BLOOD SUGAR DIAGNOSTIC STRIP TEST SCH ×4 (06:43→21:20)
[2022-02-26 07:31] LABS: HEMATOCRIT 37.2 % (42.0-52.0); HEMOGLOBIN 12.6 g/dL (14.0-18.0); MEAN CORPUSCULAR HEMOGLOBIN 30.7 pg (28.0-32.0); MEAN CORPUSCULAR VOLUME 90.7 fL (80.0-94.0); PLATELET 290 x1000/uL (130-400)
[2022-02-26] MEDS: INSULIN LISPRO 100 UNITS/ML SUBCUT SCH ×3 (07:50→17:50)
[2022-02-26 07:58] LABS: CHLORIDE 105 mEq/L (98-107)
[2022-02-26 08:00] VITALS: BP 144/67
[2022-02-26] MEDS: ASPIRIN 81MG TABLET PO SCH (09:54)
[2022-02-26] MEDS: FAMOTIDINE 20MG TABLET PO SCH (09:55)
[2022-02-26] MEDS: AMLODIPINE 10MG TABLET PO SCH (09:55)
[2022-02-26] MEDS: INSULIN GLARGINE 100 UNITS/ML SUBCUT SCH ×2 (09:57→21:17)
[2022-02-26 12:00] VITALS: BP 133/64
[2022-02-26 16:00] VITALS: BP 141/66
[2022-02-26] MEDS: ENOXAPARIN 40MG/0.4ML SYR SUBCUT SCH (19:07)
[2022-02-26 20:00] VITALS: BP 135/65
[2022-02-27] VITALS: BP 150/68
[2022-02-27 04:00] VITALS: BP 159/73
[2022-02-27] MEDS: HYDRALAZINE HCL 50MG TABLET PO SCH ×3 (05:30→21:01)
[2022-02-27 08:00] VITALS: BP 158/76
[2022-02-27] MEDS: ASPIRIN 81MG TABLET PO SCH (09:32)
[2022-02-27] MEDS: AMLODIPINE 10MG TABLET PO SCH (09:32)
[2022-02-27] MEDS: FAMOTIDINE 20MG TABLET PO SCH (09:32)
[2022-02-27] MEDS: INSULIN GLARGINE 100 UNITS/ML SUBCUT SCH ×2 (09:39→21:04)
[2022-02-27 12:00] VITALS: BP 133/66
[2022-02-27 16:00] VITALS: BP 139/53
[2022-02-27] MEDS: ENOXAPARIN 40MG/0.4ML SYR SUBCUT SCH (16:00)
[2022-02-27 20:09] VITALS: BP 147/64
[2022-02-28 00:05] VITALS: BP 137/63
[2022-02-28 04:00] VITALS: BP 152/72
[2022-02-28] MEDS: HYDRALAZINE HCL 50MG TABLET PO SCH ×3 (05:21→22:00)
[2022-02-28 08:00] VITALS: BP 142/62
[2022-02-28] MEDS: AMLODIPINE 10MG TABLET PO SCH (08:20)
[2022-02-28] MEDS: FAMOTIDINE 20MG TABLET PO SCH (08:20)
[2022-02-28] MEDS: INSULIN GLARGINE 100 UNITS/ML SUBCUT SCH ×2 (10:13→21:56)
[2022-02-28 12:00] VITALS: BP 133/70
[2022-02-28] MEDS: ENOXAPARIN 40MG/0.4ML SYR SUBCUT SCH (15:46)
[2022-02-28 16:00] VITALS: BP 128/74
[2022-02-28] MEDS ORDERED: NALOXONE HCL 0.4MG/ML VIAL IV PRN (16:00)
[2022-02-28] MEDS ORDERED: HYDROCODONE/ACETAMINOPHEN 5/325MG TABLET PO PRN (16:00)
[2022-02-28] MEDS ORDERED: ACETAMINOPHEN 650MG SUPP PR PRN (18:30)
[2022-02-28] MEDS ORDERED: ACETAMINOPHEN 325MG TABLET PO PRN (18:30)
[2022-02-28] MEDS ORDERED: DEXTROSE 50% WATER 50ML SYRINGE IV PRN (18:30)
[2022-02-28 20:00] VITALS: BP 104/56
[2022-02-28] MEDS: INSULIN LISPRO 100 UNITS/ML SUBCUT SCH (21:55)
[2022-02-28] MEDS: BLOOD SUGAR DIAGNOSTIC STRIP TEST SCH (21:56)
[2022-03-01] VITALS: BP 132/70
[2022-03-01 04:00] VITALS: BP 143/70
[2022-03-01] MEDS: HYDRALAZINE HCL 50MG TABLET PO SCH ×3 (05:38→22:29)
[2022-03-01] MEDS: INSULIN LISPRO 100 UNITS/ML SUBCUT SCH ×4 (07:29→21:00)
[2022-03-01] MEDS: BLOOD SUGAR DIAGNOSTIC STRIP TEST SCH ×4 (07:29→21:00)
[2022-03-01 08:00] VITALS: BP 126/63
[2022-03-01 08:38] LABS: BASOPHILS % 0.5 % (0.0-2.0); EOSINOPHILS % 4.5 % (0.0-5.0); HEMATOCRIT. 38.4 % (42.0-52.0); HEMOGLOBIN. 12.8 g/dL (14.0-18.0); LYMPHOCYTES % 23.3 % (20.0-50.0); MEAN CORPUSCULAR HEMOGLOBIN 30.4 pg (28.0-32.0); MEAN CORPUSCULAR VOLUME 91.2 fL (80.0-94.0); MEAN PLATELET VOLUME 8.8 fl (7.4-10.4); MONOCYTES % 7.6 % (2.0-8.0); NEUTROPHILS % 64.1 % (40.0-76.0); PLATELET 314 x1000/uL (130-400); RED BLOOD CELL COUNT 4.21 mill/uL (4.7-6.1); RED CELL DISTRIBUTION WIDTH 13.6 % (11.6-14.6)
[2022-03-01] MEDS: FAMOTIDINE 20MG TABLET PO SCH (08:44)
[2022-03-01] MEDS: AMLODIPINE 10MG TABLET PO SCH (08:44)
[2022-03-01 08:59] LABS: CHLORIDE 106 mEq/L (98-107)
[2022-03-01] MEDS: INSULIN GLARGINE 100 UNITS/ML SUBCUT SCH ×2 (10:16→22:00)
[2022-03-01 12:00] VITALS: BP 134/69
[2022-03-01 16:00] VITALS: BP 137/66
[2022-03-01] MEDS: ENOXAPARIN 40MG/0.4ML SYR SUBCUT SCH (16:16)
[2022-03-01 20:00] VITALS: BP 147/69
[2022-03-02] VITALS: BP 135/65
[2022-03-02] MEDS: HYDRALAZINE HCL 50MG TABLET PO SCH ×3 (06:56→21:37)
[2022-03-02] MEDS: BLOOD SUGAR DIAGNOSTIC STRIP TEST SCH ×4 (06:57→21:21)
[2022-03-02] MEDS: INSULIN LISPRO 100 UNITS/ML SUBCUT SCH ×4 (07:50→21:00)
[2022-03-02 08:00] VITALS: BP 116/64
[2022-03-02] MEDS: AMLODIPINE 10MG TABLET PO SCH (09:02)
[2022-03-02] MEDS: INSULIN GLARGINE 100 UNITS/ML SUBCUT SCH ×2 (10:00→21:40)
[2022-03-02 12:00] VITALS: BP 116/62
[2022-03-02 16:00] VITALS: BP 130/65
[2022-03-02] MEDS: ENOXAPARIN 40MG/0.4ML SYR SUBCUT SCH (17:15)
[2022-03-02 20:00] VITALS: BP 132/62
[2022-03-03] VITALS: BP 140/66
[2022-03-03 04:00] VITALS: BP 128/65
[2022-03-03] MEDS: HYDRALAZINE HCL 50MG TABLET PO SCH ×2 (05:49→13:06)
[2022-03-03] MEDS: BLOOD SUGAR DIAGNOSTIC STRIP TEST SCH ×4 (05:50→21:00)
[2022-03-03 08:00] VITALS: BP 117/62
[2022-03-03] MEDS: INSULIN LISPRO 100 UNITS/ML SUBCUT SCH ×4 (08:53→21:00)
[2022-03-03 16:00] VITALS: BP 120/68
[2022-03-03] MEDS: ENOXAPARIN 40MG/0.4ML SYR SUBCUT SCH (17:05)
[2022-03-03 20:00] VITALS: BP 120/73
[2022-03-04] VITALS: BP 125/68
[2022-03-04 04:00] VITALS: BP 143/62
[2022-03-04] MEDS: BLOOD SUGAR DIAGNOSTIC STRIP TEST SCH (06:54)
[2022-03-04 07:55] VITALS: BP 128/65
[2022-03-04 08:00] VITALS: BP 134/62
[2022-03-04] MEDS: INSULIN LISPRO 100 UNITS/ML SUBCUT SCH (08:22)
== END 2022-03-04 11:33 | DRG 177 ==
LOC: ER 10:03 → 7WST 13:25 → ENRESERV 14:05 → 7EST 21:50 → 6EST 02-11 23:46
PROVIDERS: ADMIT Internal Medicine; ATTEND Internal Medicine
DX: U07.1 COVID-19 (principal); J96.01 Acute respiratory failure with hypoxia; R65.11 Systemic inflammatory response syndrome (SIRS) of non-infectious origin with acute organ dysfunction; E87.2 Acidosis; N39.0 Urinary tract infection, site not specified; M62.82 Rhabdomyolysis; R29.6 Repeated falls; E11.65 Type 2 diabetes mellitus with hyperglycemia; D64.9 Anemia, unspecified; E78.2 Mixed hyperlipidemia; W18.30XA Fall on same level, unspecified, initial encounter; M54.89 Other dorsalgia; R26.89 Other abnormalities of gait and mobility; I10 Essential (primary) hypertension; Z75.1 Person awaiting admission to adequate facility elsewhere; Y92.89 Other specified places as the place of occurrence of the external cause; Y93.89 Activity, other specified; Z86.73 Personal history of transient ischemic attack (TIA), and cerebral infarction without residual deficits; Y99.8 Other external cause status
CPT/HCPCS: 36415; 36600; 71045; 80048; 80053; 81003; 82375; 82550; 82553; 82805; 82962; 83036; 83605; 83735; 83880; 84100; 84484; 85025; 85027; 85379; 87426; 93005; 93880; 93970; 97110; 97116; 97161; 97162; 97164; 97165; 97166; 97530; 97535; 99285; C9113; C9803; J0360; J1100; J1650; J1815; J2270; J2543; J3370; J7030; J7060